=== PATIENT | female | born 1955 | race Caucasian/White ===

== ENCOUNTER 2017-12-07 13:14 | Emergency (ER) | payer BC ==
[~2017-12-07] VITALS: Ht 162.6 cm; Wt 131.4 kg
[2017-12-07 13:29] VITALS: Ht 162.6 cm; Wt 131.4 kg
[2017-12-07 14:54] VITALS: O2SAT 95
[2017-12-07] MEDS ORDERED: DEXT1CAP9 PO (15:42)
[2017-12-07] MEDS ORDERED: DEXT1LIQ36 PO (15:42)
[2017-12-07 15:49] LABS: BASO % 0.5 %; BASO ABS # 0.04 K/uL (0-0.2); EOS % 0.9 %; EOS ABS # 0.07 K/uL (0-0.5); HEMATOCRIT 41.3 % (37-47); HEMOGLOBIN 13.9 g/dL (12.0-16.0); IG# 0.01 K/uL (0.00-0.02); LYMPH ABS # 0.55 K/uL (1.2-3.4); MEAN CORPUSCULAR HGB CONC 33.7 g/dl (32-36); MEAN PLATELET VOLUME 9.2 fL (7.4-10.4); MONO % 8.9 %; NEUT % 82.6 %; NEUT ABS # 6.49 K/uL (1.4-6.5); PLATELET COUNT 236 K/uL (130-400); RED CELL DISTRIBUTION WIDTH SD 44.1 fL (36.4-46.3); WHITE BLOOD COUNT 7.86 K/uL (4.8-10.8)
--- NOTE | 2017-12-07 15:54 | EMERGENCY ROOM VISIT NOTE ---
History First contact with patient: 14:59 Chief Complaint: FLU LIKE SX Stated Complaint: CASAS,NAUSEA,SORE THROAT,KIDNEY PAIN, FEVER, EARACHE History of Present Illness The patient is a 62 year old female who presents to the Emergency Room with complaints of cough, sore throat, bilateral otalgia, body aches, nausea, and fever with Chest congestion which began last night. The patient states many of her coworkers are ill, and she does believe several of them have tested positive for influenza this year. The patient has been taking NyQuil and DayQuil since last night without relief of her symptoms. She states she has had a fever, and though she has not checked her temperature, she states she knows this because her ears burning when she gets a fever. She has been tolerating food and fluids, however has had a decreased appetite and willingness to drink fluids. The patient states her cough has been productive of the mucus. She has been using Vicks vapor rub which does seem to help with the chest discomfort. She reports bilateral otalgia, but no drainage. The patient did not get a flu shot this year. She denies any specific abdominal pain, chest pain, difficulty breathing, leg pain or swelling, sinus pressure, or objective fever. Review of Systems A complete 10 point review of systems was reviewed with the patient with pertinent positives and negatives as per history of present illness. All else were negative. Past Medical/Surgical History [place] hypertension Social History Smoking Status: Never Smoker Smokeless Tobacco Use: No Alcohol Use: none Drug Use: none Housing Status: lives with family Occupation Status: employed Current/Historical Medications Scheduled Sulfa/Trimethoprim (Bactrim Ds 800MG/160MG), 1 TAB PO BID Scheduled PRN Albuterol Hfa (Ventolin Hfa), 2 PUFFS INH QID PRN for Wheezing Benzonatate (Tessalon Perles), 200 MG PO TID PRN for Cough Oasaiiuvsvlffoqb-Uubpqjqyaj-Pb (Vicks Nyquil Cold & Flu), 1 DOSE PO Q4 PRN for flu symptoms Dextromethorphan-Phenylephrine (Vicks Dayquil Cold & Flu), 1 CAP PO Q4 PRN for FLU SYMPTOMS Physical Exam Vital Signs Date Time Temp Pulse Resp B/P (MAP) Pulse Ox O2 Delivery O2 Flow Rate FiO2 12/07/17 17:08 38.2 99 18 173/106 95 Room Air 12/07/17 15:57 37.8 109 18 194/109 97 Room Air 12/07/17 15:03 102 12/07/17 14:54 107 20 215/95 99 Room Air 12/07/17 14:54 95 Room Air 12/07/17 14:50 107 20 222/113 96 12/07/17 13:29 37.6 106 20 212/112 97 Room Air Physical Exam VITALS: Vitals are noted on the nurse's note and reviewed by myself. Vital signs stable. GENERAL: This is a 62-year-old obese white female, in no acute distress, nondiaphoretic, well-developed well-nourished. SKIN: The skin was without rashes, erythema, edema, or bruising. There is no tenting of the skin. Capillary reflex less than 2 seconds. HEAD: Normocephalic atraumatic. EARS: Left external auditory canal with cerumen impaction. Right external auditory canal clear, tympanic membrane pearly granados without erythema or effusion bilaterally. EYES: Pupils equal round and reactive to light and accommodation. Conjunctivae without injection, sclerae without icterus. Extraocular movements intact. NOSE: Patent, turbinates without inflammation or discharge. No sinus tenderness. MOUTH: Mucous membranes moist. Tonsils are not enlarged. Pharynx without erythema or exudate. Uvula midline. Airway patent. Tongue does not deviate. NECK: Supple without nuchal rigidity. No lymphadenopathy. No thyromegaly. Cervical spine is nontender. No JVD. HEART: Regular rate and rhythm without murmurs gallops or rubs. LUNGS: Clear to auscultation bilaterally without wheezes, rales or rhonchi. No dullness to percussion. No retractions or accessory muscle use. ABDOMEN: Positive bowel sounds x 4. Normal tympanic percussion. Soft, nontender, without masses or organomegaly. Shore sign negative. No guarding or rebound tenderness. MUSCULOSKELETAL: No muscle atrophy, erythema, or edema noted. Full range of motion without joint tenderness in all extremities. No tenderness to palpation. Normal gait. Strength 5/5 throughout. NEURO: Patient was alert and oriented to person place and time. Normal sensation to light and sharp touch. Deep tendon reflexes 2+ throughout. No focal neurological deficits. Medical Decision & Procedures ER Provider Diagnostic Interpretation: CHEST 2 VIEWS ROUTINE CLINICAL HISTORY: cough dyspnea COMPARISON STUDY: No previous studies for comparison. FINDINGS: Findings suggesting a slight prominence of the basilar ankle and peribronchial markings. No well-defined focal infiltrate. Mid and upper lungs are considered clear. IMPRESSION: Mild basilar bronchitis. The above report was generated using voice recognition software. It may contain grammatical, syntax or spelling errors. Electronically signed by: Harrison Carroll M.D. 12/07/2017 3:57 PM Dictated Date/Time: 12/07/2017 3:56 PM Laboratory Results 12/07/17 15:35 Red Blood Count 4.80, Mean Corpuscular Volume 86.0, Mean Corpuscular Hemoglobin 29.0, Mean Corpuscular Hemoglobin Concent 33.7, Mean Platelet Volume 9.2, Neutrophils (%) (Auto) 82.6, Lymphocytes (%) (Auto) 7.0, Monocytes (%) (Auto) 8.9, Eosinophils (%) (Auto) 0.9, Basophils (%) (Auto) 0.5, Neutrophils # (Auto) 6.49, Lymphocytes # (Auto) 0.55, Monocytes # (Auto) 0.70, Eosinophils # (Auto) 0.07, Basophils # (Auto) 0.04 12/07/17 15:35 Test 12/07/17 15:30 12/07/17 15:35 12/07/17 16:00 Influenza Type A Antigen Neg for Influ A (NEG) Influenza Type B Antigen Neg for Influ B (NEG) White Blood Count 7.86 K/uL (4.8-10.8) Red Blood Count 4.80 M/uL (4.2-5.4) Hemoglobin 13.9 g/dL (12.0-16.0) Hematocrit 41.3 % (37-47) Mean Corpuscular Volume 86.0 fL (80-100) Mean Corpuscular Hemoglobin 29.0 pg (25-34) Mean Corpuscular Hemoglobin Concent 33.7 g/dl (32-36) Platelet Count 236 K/uL (130-400) Mean Platelet Volume 9.2 fL (7.4-10.4) Neutrophils (%) (Auto) 82.6 % Lymphocytes (%) (Auto) 7.0 % Monocytes (%) (Auto) 8.9 % Eosinophils (%) (Auto) 0.9 % Basophils (%) (Auto) 0.5 % Neutrophils # (Auto) 6.49 K/uL (1.4-6.5) Lymphocytes # (Auto) 0.55 K/uL (1.2-3.4) Monocytes # (Auto) 0.70 K/uL (0.11-0.59) Eosinophils # (Auto) 0.07 K/uL (0-0.5) Basophils # (Auto) 0.04 K/uL (0-0.2) RDW Standard Deviation 44.1 fL (36.4-46.3) RDW Coefficient of Variation 14.0 % (11.5-14.5) Immature Granulocyte % (Auto) 0.1 % Immature Granulocyte # (Auto) 0.01 K/uL (0.00-0.02) Anion Gap 6.0 mmol/L (3-11) Est Creatinine Clear Calc Drug Dose 91.5 ml/min Estimated GFR () 83.3 Estimated GFR (Non- 71.9 BUN/Creatinine Ratio 9.6 (10-20) Calcium Level 8.5 mg/dl (8.5-10.1) Total Bilirubin 0.6 mg/dl (0.2-1) Aspartate Amino Transf (AST/SGOT) 39 U/L (15-37) Alanine Aminotransferase (ALT/SGPT) 53 U/L (12-78) Alkaline Phosphatase 121 U/L (45-117) Total Protein 8.1 gm/dl (6.4-8.2) Albumin 3.6 gm/dl (3.4-5.0) Globulin 4.5 gm/dl (2.5-4.0) Albumin/Globulin Ratio 0.8 (0.9-2) Urine Color RED Urine Appearance CLOUDY (CLEAR) Urine pH 7.0 (4.5-7.5) Urine Specific [place] 1.020 (1.000-1.030) Urine Protein 1+ (NEG) Urine Glucose (UA) NEG (NEG) Urine Ketones NEG (NEG) Urine Occult Blood 3+ (NEG) Urine Nitrite NEG (NEG) Urine Bilirubin NEG (NEG) Urine Urobilinogen NEG (NEG) Urine Leukocyte Esterase NEG (NEG) Urine RBC >30 /hpf (0-4) Urine WBC 10-30 /hpf (0-5) Urine Epithelial Cells >30 /lpf (0-5) Urine Bacteria 1+ (NEG) ECG Per My Interpretation Indication: chest pain Rate (beats per minute): 100 Rhythm: normal sinus Findings: no acute ischemic change, no ectopy ED Course The patient was seen and evaluated as above. IV access obtained, labs drawn. Chest x-ray performed. This was reviewed by myself and radiologist as above. EKG interpreted by myself as above. Laboratory testing reviewed. I discussed all findings with the patient at bedside. Discharge instructions reviewed, the patient was discharged home in good condition. Medical Decision This is a 62-year-old female patient presents to the emergency department today complaining of influenza-like symptoms since last night. Her influenza testing was negative. CBC was without leukocytosis, anemia, thrombocytopenia. CMP did not reveal any significant renal or electrolyte abnormalities. AST was slightly elevated at 39 and alkaline phosphatase was elevated at 121. Urinalysis was suspicious for infection with positive protein, blood, bacteria. The patient has not had any abdominal pain, and states she has not noticed any urinary symptoms. I did discuss the option of imaging the kidneys due to her complaints of flank pain, but she describes the pain as consistent with any time she gets ill and declines further work-up. The patient will be started on antibiotics for possible urinary tract infection with culture pending. The patient's chest x-ray did show signs of bronchitis. The patient will be treated symptomatically for this. While there is certainly concern for acute kidney injury including glomerulonephritis or other etiologies, I have a low suspicion for this based on her renal function and lack of symptoms. The patient was given strict follow-up and return precautions and will be treated for possible UTI. The patient was agreeable with the assessment and plan at this time. Differential diagnosis includes influenza, bronchitis, pneumonia, acute sinusitis, upper respiratory infection, tracheobronchitis, strep pharyngitis, glomerulonephritis, nephrolithiasis, ureteral calculus, urinary tract infection , hydronephrosis, pyelonephritis, malignancy, and others Medication Reconcilliation Current Medication List: was personally reviewed by me Blood Pressure Screening Patient's blood pressure: Elevated blood pressure Blood pressure disposition: Elevated BP felt to be situational The patient has known history of [place] HTN. Impression Primary Impression: Acute bronchitis Additional Impressions: Asymptomatic bacteriuria Influenza-like symptoms Departure Information Dispostion Home / Self-Care Condition GOOD Prescriptions Sulfa/Trimethoprim (Bactrim Ds 800MG/160MG) Tab 1 TAB PO BID for 7 Days, #14 TAB Prov: Lauren Urrutia PA-C 12/07/17 Benzonatate (Tessalon Perles) 200 Mg Cap 200 MG PO TID Y for Cough, #30 CAP Prov: Lauren Urrutia PA-C 12/07/17 Albuterol Hfa (VENTOLIN HFA) 200 Puffs/86505 Mcg Aers 2 PUFFS INH QID Y for Wheezing, #1 INHALER Prov: Lauren Urrutia PA-C 12/07/17 Patient Instructions Bronchitis Acute, ED UTI Cystitis Female, My [facility] Additional Instructions You were seen and evaluated in the emergency department today for a influenza- like symptoms. As discussed, CXR did show evidence for acute bronchitis. I do feel that based on your symptoms, and the duration of illness, this is likely viral in nature. As discussed, antibiotics will not treat viral illness. Your urine did show some bacteria, which is suspicious for UTI. With your other symptoms and low back pain, I do recommend short-term treatment in case of UTI. Trimethoprim-Sulfamethoxazole(Bactrim DS): Take one pill twice daily for 7 days for your urinary tract infection. All antibiotics can cause diarrhea. If this occurs and you feel worse or it does not resolve in 1-2 days follow up with your doctor or return to the Emergency Department as this could be signs of serious underlying problems. Any medication can cause an allergic reaction, stop the pills immediately and return to the ER for rash, hives, breathing difficulties, or swelling. You have been provided with an albuterol inhaler to use for wheezing or difficulty breathing. Use this inhaler 1-2 puffs every 4-6 hours as needed. If you find that your symptoms are not improving with the use of the inhaler, or if you find that you need to use the inhaler longer than 1 week, return to the ED or follow-up with your PCP. You have been given benzonatate (Tessalon Pearles) to be used for coughing. These should be taken 1 capsule up to 3 times per day as needed for coughing. Do not take this medication more than prescribed. You may use this medication in addition to OTC cough medications. For your sore throat, you may use a 1:1 mixture of liquid Benadryl and liquid Maalox. Gargle and spit this mixture. It will help to soothe the throat and provide some relief. Drink warm tea with honey and lemon, as this will also help to soothe the throat. Gargle with salt water frequently. As discussed, you should take OTC Mucinex and/or Sudafed for your symptoms. Please do not exceed the recommended daily dosages. Ibuprofen(Motrin, Advil) may be used for fever or pain. Use 600mg every six hours as needed. Take with food. Avoid using more than 2400mg in a 24 hour period. Do not use 2400mg per day for more than three consecutive days without physician direction. Prolonged inappropriate use can lead to stomach upset or ulcers. You may take Naproxen 1-2 tablets twice daily in place of ibuprofen. This medication will help with the swelling in your sinuses. (AND/OR) Acetaminophen(Tylenol) may be used for fever or pain. Use 1000mg every six hours as needed. Avoid using more than 3000mg in a 24 hour period. For congestion, you may use Flonase OTC. You may want to consider zinc, echinacea, and vitamin C to help boost your immunity. Please get plenty of rest and drink plenty of fluids. Please return or follow-up with your PCP in 1 week if you are not experiencing any improvement in your symptoms. Return to the emergency department for coughing up blood, difficulty breathing, chest pain, worsening symptoms, or for other concerns. Problem Qualifiers Primary Impression: Acute bronchitis Bronchitis organism: unspecified organism Qualified Codes: J20.9 - Acute bronchitis, unspecified
--- NOTE | 2017-12-07 15:58 | DIAGNOSTIC IMAGING REPORT ---
CHEST 2 VIEWS ROUTINE CLINICAL HISTORY: cough dyspnea COMPARISON STUDY: No previous studies for comparison. FINDINGS: Findings suggesting a slight prominence of the basilar ankle and peribronchial markings. No well-defined focal infiltrate. Mid and upper lungs are considered clear. IMPRESSION: Mild basilar bronchitis. The above report was generated using voice recognition software. It may contain grammatical, syntax or spelling errors. Electronically signed by: Harrison Carroll M.D. 12/07/2017 3:57 PM Dictated Date/Time: 12/07/2017 3:56 PM
[2017-12-07 16:07] LABS: ALBUMIN 3.6 gm/dl (3.4-5.0); CALCIUM 8.5 mg/dl (8.5-10.1); CREATININE 0.87 mg/dl (0.60-1.20); POTASSIUM 3.6 mmol/L (3.5-5.1)
[2017-12-07 16:10] LABS: TOTAL PROTEIN 8.1 gm/dl (6.4-8.2)
[2017-12-07 16:11] LABS: INFLUENZA B ANTIGEN Neg for Influ B (NEG)
[2017-12-07] MEDS ORDERED: VNTHFA/IN INH (16:54)
[2017-12-07] MEDS ORDERED: SULF800T23 PO (16:54)
[2017-12-07] MEDS ORDERED: BENZ1CAP90 PO (16:54)
[2017-12-07 17:08] VITALS: BP 173/106; PULSE 99; TEMP 38.2; O2SAT 95
== END 2017-12-07 17:23 | disposition home or self-care (01) ==
LOC: C.EDB 13:17 → C.EDA 17:23
DX: J20.9 Acute bronchitis, unspecified (principal); R82.71 Bacteriuria; R05 Cough; M79.1 Myalgia; R11.0 Nausea; R50.9 Fever, unspecified; H92.03 Otalgia, bilateral; R09.89 Other specified symptoms and signs involving the circulatory and respiratory systems

== ENCOUNTER → 2017-12-29 | Outpatient (CLI) | payer BC ==
[~2017-12-29] MED LIST: BENZ1CAP90 PO; DEXT1CAP9 PO; DEXT1LIQ36 PO; VNTHFA/IN INH
== END | disposition home or self-care (01) ==
LOC: C.PAPS 16:38
PROVIDERS: ATTEND Physician Assistant
DX: Z01.419 Encounter for gynecological examination (general) (routine) without abnormal findings (principal)

== ENCOUNTER 2018-02-19 07:51 | Day surgery (SDC) | payer BC ==
[2018-02-16 08:46] VITALS: BMI 44.0
[2018-02-16 08:47] VITALS: BMI 44.0
--- NOTE | 2018-02-16 09:18 | PAT Medication Instructions ---
Service Date Feb 16, 2018. Current Home Medication List Loratadine (Claritin), 10 MG PO QAM Mometasone Furoate (Nasal) (Mometasone Furoate), 1 SPRAY NA QAM Medication Instructions For Your Scheduled Surgery - Hold the following medications the morning of surgery: Loratadine (Claritin), 10 MG PO QAM - Take the following medications the morning of surgery with a sip of water: Mometasone Furoate (Nasal) (Mometasone Furoate), 1 SPRAY NA QAM If you have any questions please call us at [phone] or [phone] or [phone]
[2018-02-16 09:58] LABS: BASO % 0.8 %; BASO ABS # 0.05 K/uL (0-0.2); EOS % 3.2 %; HEMATOCRIT 41.5 % (37-47); HEMOGLOBIN 13.4 g/dL (12.0-16.0); IG# 0.02 K/uL (0.00-0.02); LYMPH ABS # 1.46 K/uL (1.2-3.4); MEAN CELL VOLUME 88.3 fL (80-100); MEAN CORPUSCULAR HEMOGLOBIN 28.5 pg (25-34); MEAN CORPUSCULAR HGB CONC 32.3 g/dl (32-36); MEAN PLATELET VOLUME 9.1 fL (7.4-10.4); MONO ABS # 0.51 K/uL (0.11-0.59); NEUT % 64.7 %; PLATELET COUNT 264 K/uL (130-400); RED CELL DISTRIBUTION WIDTH CV 13.8 % (11.5-14.5); WHITE BLOOD COUNT 6.34 K/uL (4.8-10.8)
[2018-02-16 10:10] LABS: CALCIUM 8.9 mg/dl (8.5-10.1); CREATININE 0.76 mg/dl (0.60-1.20)
[~2018-02-19] VITALS: Ht 165.1 cm; Wt 122.0 kg
[~2018-02-19 07:51] MED LIST changes: -BENZ1CAP90 PO; +CLR10 PO; -DEXT1CAP9 PO; -DEXT1LIQ36 PO; +LACTATED RINGER'S 1000ML 1,000 ML IV SCH; +MOME6000; -VNTHFA/IN INH
[2018-02-19 08:11] VITALS: BP 179/94; PULSE 68; TEMP 36.7; O2SAT 98; Ht 165.1 cm; Wt 122.0 kg
[2018-02-19] MEDS ORDERED: EpHEDrine SULFATE 50MG/5ML SYR ONE (08:15)
[2018-02-19] MEDS ORDERED: PROPOFOL IV EMULSION 10 MG/ML 20 ML VIAL ONE (08:15)
[2018-02-19] MEDS ORDERED: LIDOCAINE HCL 2% 2 ML VIAL (20MG/ML) ONE (08:15)
[2018-02-19] MEDS ORDERED: DEXAMETHASONE SOD INJ 4 MG/ML VIAL ONE (08:15)
[2018-02-19] MEDS ORDERED: PHENYLEPHRINE 100MCG/ML 5ML SYR ONE (08:15)
[2018-02-19] MEDS ORDERED: MIDAZOLAM HCL 1 MG/ML 2ML VIAL ONE (08:15)
[2018-02-19] MEDS ORDERED: FENTANYL CITRATE INJ 50 MCG/1 ML 2 ML VIAL ONE (08:15)
[2018-02-19] MEDS ORDERED: ONDANSETRON INJ 2 MG/ML 2 ML VIAL ONE (08:15)
[2018-02-19] MEDS ORDERED: FENTANYL CITRATE INJ 50 MCG/1 ML 2 ML VIAL IV PRN (08:30)
[2018-02-19] MEDS ORDERED: ONDANSETRON INJ 2 MG/ML 2 ML VIAL IV PRN ×2 (08:30→10:45)
[2018-02-19] MEDS ORDERED: EpHEDrine SULFATE INJ 50 MG/ML AMP IV PRN (08:30)
[2018-02-19] MEDS ORDERED: ATROPINE SULFATE 0.1 MG/ML 5ML SYR IV PRN (08:30)
--- NOTE | 2018-02-19 09:38 | History and Physical ---
History & Physical Date Feb 19, 2018. Chief Complaint PMB History of Present Illness 62yo G0 presents for ultrasound followup. She had been seen for initiation of care, annual exam, and postmenopausal bleeding. Has had light bleeding for the past 4 months. Uterus shows lining 20mm. Vascular. Cannot tell if this looks like a polyp or thickened lining. Adnexae wnl. No free fluid. No medical history. Surgical history sinus infection. Allergy: erythro (blistering skin on hands) Meds: PRN clarinex, nasonex, naproxen Past Medical/Surgical History see above Allergies Coded Allergies: Erythromycin (Verified Allergy, Mild, HANDS PEEL, 02/19/18) Home Medications Scheduled Loratadine (Claritin), 10 MG PO QAM Mometasone Furoate (Nasal) (Mometasone Furoate), 1 SPRAY NA QAM Physical Examination Addiitonal Comments: Constitutional: alert, in no acute distress, well nourished, well developed and healthy appearing. Skin: normal skin color and pigmentation, normal skin turgor and no rash. Neck: the appearance of the neck was normal, no neck mass was observed, the thyroid was not enlarged and there were no palpable thyroid nodules. Pulmonary: no respiratory distress, normal respiratory rhythm and effort and clear bilateral breath sounds. Cardiovascular: heart rate and rhythm were normal, normal S1 and S2 and no murmurs present. Abdomen: soft, non-tender, no abdominal mass palpated and no hepato- splenomegaly. No hernias were discovered. Neurological: The patient was oriented to person, place, and time. Mood and affect were appropriate. Extremities: No edema, no calf tenderness. Diagnosis PMB, thickened lining (endometrial) Plan of Treatment Reviewed all options, recommend sampling - will plan for D&C with hysteroscopy, +/- myosure polypectomy. Reviewed RBA, informed consent obtained.
--- NOTE | 2018-02-19 09:38 | History & Physical Bridge Note ---
H&P Re-Evaluation Bridge Note: I have examined the patient, reviewed the History & Physical and in the interval since the performance of the History & Physical I have noted the following changes of clinical significance: No changes noted
[2018-02-19] MEDS ORDERED: KETOROLAC TROMETHAMINE 30 MG/ML VIAL ONE (10:06)
[2018-02-19] MEDS ORDERED: SODIUM CHLORIDE 0.9% 1000ML 1,000 ML IV SCH (10:32)
--- NOTE | 2018-02-19 10:32 | [facility] Post Operative Brief Note ---
Immediate Operative Summary Operative Date Feb 19, 2018. Pre-Operative Diagnosis Postmenopausal Bleeding Post-Operative Diagnosis Same Procedure(s) Performed hysteroscopy, dilation & curettage with myosure device Surgeon Dr. Smitha Rebolledo Casing Finisher And Stuffer Surgeon(s) None Estimated Blood Loss 10ml Findings See Below large amount fluffy endometrium with calcifications Fluids (cc crystalloids) 800cc IV fluids, distension media deficit 530 Specimens Specimen: A: Polyps Drains bladder drained prior to procedure Anesthesia Type General Complication(s) none Disposition Accompanied Pt To Recover: no Disposition: Recovery Room / PACU
[2018-02-19] MEDS ORDERED: OXYCODONE/ACETAMINOPHEN 5-325 TAB PO PRN ×2 (10:45)
[2018-02-19] MEDS ORDERED: PROMETHAZINE HCL INJ 25 MG in SODIUM CHLORIDE 0.9% 50ML 50 ML IV PRN (10:45)
--- NOTE | 2018-02-19 11:19 | Anesthesiology Progress Note ---
Anesthesia Post Op Note Date & Time Feb 19, 2018 at 11:19 Vital Signs Pain Intensity: 2 Vital Signs Past 12 Hours Date Time Temp Pulse Resp B/P (MAP) Pulse Ox O2 Delivery O2 Flow Rate FiO2 02/19/18 11:15 36.4 71 20 125/88 94 Room Air 02/19/18 11:05 73 17 153/86 95 Room Air 02/19/18 10:55 69 15 152/86 100 Oxymask 10 02/19/18 10:45 75 16 147/79 99 Oxymask 10 02/19/18 10:39 36.4 79 19 155/83 98 Oxymask 10 02/19/18 08:11 36.7 68 18 179/94 (122) 98 Room Air Notes Mental Status: alert / awake / arousable, participated in evaluation Pt Amnestic to Procedure: Yes Nausea / Vomiting: adequately controlled Pain: adequately controlled Airway Patency, RR, SpO2: stable & adequate BP & HR: stable & adequate Hydration State: stable & adequate Anesthetic Complications: no major complications apparent
[2018-02-19 11:23] VITALS: BP 155/84; PULSE 73; TEMP 36.4; O2SAT 96
[2018-02-19 12:05] VITALS: BP 172/93; PULSE 70; O2SAT 98
[2018-02-19 12:43] VITALS: BP 174/97; PULSE 67; TEMP 36.5; O2SAT 96
--- NOTE | 2018-02-19 13:03 | Discharge Instructions ---
Discharge Instructions Date of Service Feb 19, 2018. Visit Reason for Visit: Post Menopausal Bleeding Discharge Discharge Diagnosis / Problem: Same Discharge Goals Goal(s): Diagnostic testing Activity Recommendations Activity Limitations: per Instructions/Follow-up section Anesthesia . Post Anesthesia Instructions: If you have had General Anesthesia or IV Sedation: * Do not drive today. * Resume driving when surgeon permits. * Do not make important decisions or sign legal documents today. * Call surgeon for: 1. Temperature elevations greater than 101 degrees F. 2. Uncontrollable pain. 3. Excessive bleeding. 4. Persistent nausea and vomiting. 5. Medication intolerance (nausea, vomiting or rash). * For nausea and vomiting use only clear liquids such as: tea, soda, bouillon until nausea subsides, then gradually increase diet as tolerated. * If you have any concerns or questions, call your surgeon's office. If physician is unavailable and it is an emergency, call 911 or go to the nearest emergency room. . Instructions / Follow-Up Instructions / Follow-Up ACTIVITY RECOMMENDATIONS: * Avoid tampons, douching, hot tubs, pools, and intercourse until bleeding has stopped. * May shower as usual. * No strenuous activity for 24-48 hours. After 24-48 hours, you may do anything you feel like doing (driving and sports are okay). SPECIAL CARE INSTRUCTIONS: Special Diet: * Mild nausea may occur in the immediate post-operative period. * Take clear liquids such as tea, cola or bouillon until all nausea has subsided; you may then resume your normal diet. Special Care: * Light bleeding and vaginal spotting can last from a few days to 3-4 weeks. Call your doctor if bleeding becomes heavier than the heaviest part of your period. * Check your temperature twice a day for one week. If it goes above 100.4 degrees Fahrenheit (38.0 Celsius), notify your doctor. * Call your doctor's office for an appointment for 6 weeks after your surgery. FOLLOW-UP VISIT: Call your doctor's office for an appointment for 6 weeks after your surgery. Diet Recommendations Recommended Home Diet: resume previous diet Procedures Procedures Performed: hysteroscopy, dilation & curettage with myosure device Pending Studies Studies pending at discharge: yes List of pending studies: pathology Medical Emergencies . Who to Call and When: Medical Emergencies: If at any time you feel your situation is an emergency, please call 911 immediately. . Non-Emergent Contact Non-Emergency issues call your: Primary Care Provider, Roaster Operator . . "Provider Documentation" section prepared by Smitha Rebolledo. .
[2018-02-19 13:19] VITALS: BP 161/91
--- NOTE | 2018-02-19 13:49 | OPERATIVE REPORT ---
DATE OF OPERATION: 02/19/2018 PREOPERATIVE DIAGNOSIS: Postmenopausal bleeding. POSTOPERATIVE DIAGNOSIS: Same. PROCEDURES PERFORMED: Hysteroscopy, dilation and curettage with MyoSure device. SURGEON: Smitha Rebolledo DO LEAD SOFTWARE TEST ENGINEER: None. ESTIMATED BLOOD LOSS: 10 mL. FINDINGS: Large amount of fluffy endometrium with calcifications and vasculature within the endometrial tissue. FLUIDS: 800 mL IV fluids, distention media with deficit of 530. SPECIMENS: Endometrial curettings. DRAINS: Bladder drained prior to procedure. ANESTHESIA: General. COMPLICATIONS: None. DISPOSITION: Stable and good to recovery room. INDICATIONS FOR PROCEDURE: The patient is a 62-year-old G0, who had presented for ultrasound followup with postmenopausal bleeding, had had light vaginal bleeding for the prior 4 months. Ultrasound showed a lining of 20 mm with vascularity. It could not be determined on ultrasound if this was a polyp or a thickened endometrial lining. No medical history. DESCRIPTION OF PROCEDURE: The patient was seen in the preoperative holding area where risks, benefits, alternatives to surgery were reviewed. She elected to proceed with the case. She was taken to the operating room where general anesthesia was administered. She had previously signed informed consent under no duress in the office. She was prepared and draped in the usual sterile fashion in the dorsal lithotomy position with feet in [facility] stirrups. A timeout was confirmed. The bladder was drained for a small amount of clear yellow urine. A weighted speculum was placed in the vagina. The cervix was visualized and its anterior lip was grasped with a single tooth tenaculum. The cervix was gently dilated to admit the hysteroscope. The hysteroscope had to be inserted twice as on the first insertion it appeared to be a false cavity and second insertion, although I could not see the bilateral tubal ostia there appeared to be thick vascular endometrial tissue. The MyoSure device was then inserted through the scope and a gentle curettage was undertaken with the MyoSure device. All instruments were withdrawn. Excellent hemostasis was observed. The endometrial curettings were removed from the collection sock in the Aquilex machine and sent to pathology for further evaluation. The patient was awoken from anesthesia and taken to the postoperative recovery area in stable and good condition. I attest to the content of the Intraoperative Record and any orders documented therein. Any exception s are noted below.
== END 2018-02-19 13:20 | disposition home or self-care (01) ==
LOC: C.ACU 07:51
PROVIDERS: ATTEND Obstetrics & Gynecology
DX: C54.1 Malignant neoplasm of endometrium (principal); N95.0 Postmenopausal bleeding; I10 Essential (primary) hypertension; E66.01 Morbid (severe) obesity due to excess calories; Z88.1 Allergy status to other antibiotic agents